=== PATIENT | male | born 1945 | race Caucasian/White ===

== ENCOUNTER 2016-09-06 11:45 | Inpatient (IN) | payer OTHER ==
[~2016-09-06] VITALS: Ht 180.3 cm; Wt 117.9 kg
[2016-09-06 16:00] VITALS: BP 141/67
[2016-09-06 18:43] LABS: BASOPHILS % (AUTO) 1.2 % (0.0-2.0); EOSINOPHILS % (AUTO) 2.2 % (0.0-3.0); LYMPHOCYTES % (AUTO) 21.2 % (20.0-45.0); MEAN CORPUSCULAR HEMOGLOBIN 31.1 PG (27.0-31.0); MEAN CORPUSCULAR HGB CONC 33.3 G/DL (32.0-36.0); MEAN CORPUSCULAR VOLUME 93 FL (80-99); MEAN PLATELET VOLUME 8.1 FL (6.5-10.1); NEUTROPHILS % (AUTO) 66.4 % (45.0-75.0); PLATELET COUNT 139 K/UL (150-450); RED BLOOD COUNT 5.47 M/UL (4.70-6.10); RED CELL DISTRIBUTION WIDTH 12.2 % (11.6-14.8); WHITE BLOOD COUNT 9.2 K/UL (4.8-10.8)
[2016-09-06 19:01] LABS: CALCIUM 9.5 mg/dL (8.6-10.2); CREATININE 1.5 mg/dL (0.7-1.2); GLOMERULAR FILTRATION RATE 46.4 mL/min (>60); POTASSIUM 4.3 mEQ/L (3.4-4.9)
--- NOTE | 2016-09-06 19:10 | History and Physical ---
History of Present Illness General Date patient seen: Sep 06, 2016 Time patient seen: 19:10 Reason for Hospitalization: Encephalopathy Present Illness HPI 70y/o male with pmh of DM2, HTN, CKD, BPH, depression, PVD who presents from PCP 's office with concern for acute encephalopathy and psychosis. P noted to be upset and screaming at staff at PCP's office. He had grandoise behavior, stating he is a civil right's leader. He has conspiracy theories abt government. He states he's planning on suing [facility] justices. He states people come to him for him and he is an important person. He dwells on multiple past doctor experiences which he is upset abt. He appears to be paranoid. Pt states you should "google who I am so you can truly understand who you are dealing with here". Pt was instructed to go to [facility] for direct admission which he did comply with. Pt also states he does not trust any of his family members including his son. He is currently living with a friend/roommate. Smokes marijuana. Denies other drugs or alcohol use. Denies recent falls or trauma. States he has been in inpatient psych facilities. States he is not currently taking any psych meds. Pt also states has h/o "leaky valve" and "kidney lesions", "gallstones". Allergies: Coded Allergies: NO KNOWN ALLERGIES (Verified Allergy, Unknown, 09/06/16) Medication History Scheduled Amlodipine Besylate* (Amlodipine Besylate*), 10 MG ORAL DAILY, (Reported) Atenolol* (Tenormin*), 25 MG ORAL DAILY, (Reported) Atenolol* (Tenormin*), 25 MG ORAL DAILY, (Reported) Glimepiride* (Glimepiride*), 2 MG ORAL BEFORE BREAKFAST, (Reported) Lisinopril/Hydrochlorothiazide 10-12.5 Mg Tab (Lisinopril-Hctz 10-12.5 Mg Tab), 1 TAB ORAL DAILY, (Reported) Metformin Hcl* (Metformin Hcl*), 850 MG ORAL DAILY, (Reported) Miscellaneous Medications Gemfibrozil (Gemfibrozil*), 600 MG ORAL, (Reported) Oxybutynin Chloride (Oxybutynin Chloride), 10 MG ORAL, (Reported) Patient History History Provided By: Patient, Medical Record, PMD Healthcare decision maker N Resuscitation status Advanced Directive on File Family History Family History: Patient reports no known family medical history. Social History Social History: (1) Lives with roommates Review of Systems ROS Narrative General: alert, cooperative, no distress, appears stated age Head: normocephalic, without obvious abnormality, atraumatic Eyes: conjunctivae/corneas clear. PERRL, EOM's intact Throat: lips, mucosa, and tongue normal. MMM Neck: supple, symmetrical, trachea midline, and no JVD Lungs: clear to auscultation bilaterally Heart: regular rate and rhythm, S1, S2 normal, no murmur, click, rub or gallop Abdomen: soft, non-tender, non-distended, bowel sounds normal; no masses or organomegaly Extremities: extremities normal, atraumatic, no cyanosis or edema Pulses: 2+ and symmetric Skin: skin color, texture, turgor normal; no rashes or lesions Neurologic: grossly normal, no focal deficits Physical Exam Physical Exam Narrative General: alert, cooperative, no distress, appears stated age Head: normocephalic, without obvious abnormality, atraumatic Eyes: conjunctivae/corneas clear. PERRL, EOM's intact Throat: lips, mucosa, and tongue normal. MMM Neck: supple, symmetrical, trachea midline, and no JVD Lungs: clear to auscultation bilaterally Heart: regular rate and rhythm, S1, S2 normal, no murmur, click, rub or gallop Abdomen: soft, non-tender, non-distended, bowel sounds normal; no masses or organomegaly Extremities: extremities normal, atraumatic, no cyanosis or edema Pulses: 2+ and symmetric Skin: skin color, texture, turgor normal; no rashes or lesions Neurologic: grossly normal, no focal deficits Last 24 Hour Vital Signs Date Time Temp Pulse Resp B/P Pulse Ox O2 Delivery O2 Flow Rate FiO2 09/06/16 16:00 97.5 52 19 141/67 96 Room Air Laboratory Tests Test 09/06/16 18:35 White Blood Count 9.2 K/UL (4.8-10.8) Red Blood Count 5.47 M/UL (4.70-6.10) Hemoglobin 17.0 G/DL (14.2-18.0) Hematocrit 51.0 % (42.0-52.0) Mean Corpuscular Volume 93 FL (80-99) Mean Corpuscular Hemoglobin 31.1 PG (27.0-31.0) H Mean Corpuscular Hemoglobin Concent 33.3 G/DL (32.0-36.0) Red Cell Distribution Width 12.2 % (11.6-14.8) Platelet Count 139 K/UL (150-450) L Mean Platelet Volume 8.1 FL (6.5-10.1) Neutrophils (%) (Auto) 66.4 % (45.0-75.0) Lymphocytes (%) (Auto) 21.2 % (20.0-45.0) Monocytes (%) (Auto) 9.0 % (1.0-10.0) Eosinophils (%) (Auto) 2.2 % (0.0-3.0) Basophils (%) (Auto) 1.2 % (0.0-2.0) Sodium Level 140 mEQ/L (135-145) Potassium Level 4.3 mEQ/L (3.4-4.9) Chloride Level 100 mEQ/L (98-107) Carbon Dioxide Level 22 mEQ/L (20-30) Anion Gap 18 (5-15) H Blood Urea Nitrogen 35 mg/dL (7-23) H Creatinine 1.5 mg/dL (0.7-1.2) H Estimat Glomerular Filtration Rate 46.4 mL/min (>60) Glucose Level 94 mg/dL (74-106) Calcium Level 9.5 mg/dL (8.6-10.2) Folate Pending Thyroid Stimulating Hormone (TSH) Pending Assessment/Plan Problem List: (1) Acute encephalopathy ICD Codes: G93.40 - Encephalopathy, unspecified SNOMED: 1466868 (2) Acute psychosis ICD Codes: F23 - Brief psychotic disorder SNOMED: 99821037 (3) DM2 (diabetes mellitus, type 2) ICD Codes: E11.9 - Type 2 diabetes mellitus without complications SNOMED: 08411691 (4) HTN (hypertension) ICD Codes: I10 - Essential (primary) hypertension SNOMED: 20184197 Status: stable Assessment/Plan Pt's AMS appears related to acute psychosis. He has grandiose behavior, paranoia , delusions. No known neurological history. His psychiatric history is unknown at this time. Will rule out medical reason with MRI brain and labs. Check MRI brain Check B12, folate, TSH, vit D Psych consulted Check TTE given pt notes "leaky valve" Pt also states has "kidney lesions" so will check complete u/s abd D/w PMD who saw pt in office who would like pt medically stabilized and transferred to inpatient psych facility Maya Gonzalez M.D. Sep 06, 2016 19:10
[2016-09-06 19:11] LABS: THYROID STIMULATING HORMONE 2.42 uIU/mL (0.300-4.500)
[2016-09-06 20:00] VITALS: BP 126/72
[2016-09-06] MEDS ORDERED: ATENOLOL25 MG ORAL ×2 (20:54→21:02)
[2016-09-06] MEDS ORDERED: GEMFIBROZIL600 MG ORAL (21:02)
[2016-09-06] MEDS ORDERED: OXYBUTYNIN CHLOR5 M1 ORAL (21:02)
[2016-09-06] MEDS ORDERED: LISINOPRIL-HCT1 EACH ORAL (21:02)
[2016-09-06] MEDS ORDERED: METFORMIN HCL850 M1 ORAL (21:02)
[2016-09-06] MEDS ORDERED: AMLODIPINE BESY10 MG ORAL (21:02)
[2016-09-06] MEDS ORDERED: GLIMEPIRIDE1 MG ORAL (21:02)
[2016-09-06] MEDS: NovoLOG Insulin Flexpen SUBQ SCH (21:30)
[2016-09-07 04:00] VITALS: BP 123/68
[2016-09-07] MEDS: NovoLOG Insulin Flexpen SUBQ SCH ×3 (06:13→16:30)
[2016-09-07 06:38] LABS: BASOPHILS % (AUTO) 1.6 % (0.0-2.0); EOSINOPHILS % (AUTO) 3.3 % (0.0-3.0); LYMPHOCYTES % (AUTO) 23.3 % (20.0-45.0); MEAN CORPUSCULAR HEMOGLOBIN 30.8 PG (27.0-31.0); MEAN CORPUSCULAR HGB CONC 33.2 G/DL (32.0-36.0); MEAN CORPUSCULAR VOLUME 93 FL (80-99); MEAN PLATELET VOLUME 8.3 FL (6.5-10.1); MONOCYTES % (AUTO) 10.6 % (1.0-10.0); NEUTROPHILS % (AUTO) 61.2 % (45.0-75.0); PLATELET COUNT 118 K/UL (150-450); RED BLOOD COUNT 5.17 M/UL (4.70-6.10); RED CELL DISTRIBUTION WIDTH 12.1 % (11.6-14.8)
[2016-09-07 06:52] LABS: INR 1.1 (0.9-1.1); PROTHROMBIN TIME 11.4 SEC (9.30-11.50)
[2016-09-07 07:01] LABS: HEMOGLOBIN A1C 6.5 % (< 6.0)
[2016-09-07 07:02] LABS: TROPONIN I < 0.30 ng/mL (<=0.30)
[2016-09-07 07:40] LABS: ALANINE AMINOTRANSFERASE 26 U/L (3-41); ALANINE AMINOTRANSFERASE 27 U/L (3-41); ALBUMIN/GLOBULIN RATIO 1.3 (1.0-2.7); ANION GAP 18 (5-15); ASPARTATE AMINO TRANSFERASE 19 U/L (5-40); BILIRUBIN,DIRECT 0.2 mg/dL (0.1-0.3); CALCIUM 9.4 mg/dL (8.6-10.2); CARBON DIOXIDE 23 mEQ/L (20-30); CHLORIDE 101 mEQ/L (98-107); CHOLESTEROL 162 mg/dL (< 200); CHOLESTEROL/HDL RATIO 4.6 (3.3-4.4); CREATININE 1.4 mg/dL (0.7-1.2); GLOMERULAR FILTRATION RATE 50.2 mL/min (>60); LDL CHOLESTEROL (CALC.) 100 mg/dL (60-99); POTASSIUM 4.1 mEQ/L (3.4-4.9); SODIUM 142 mEQ/L (135-145); TOTAL PROTEIN 6.3 g/dL (6.6-8.7); TOTAL PROTEIN 6.4 g/dL (6.6-8.7)
[2016-09-07 08:00] VITALS: BP 122/68
[2016-09-07] MEDS ORDERED: Atenolol 25mg tab ORAL SCH (09:00)
[2016-09-07] MEDS ORDERED: Oxybutynin 5mg tab ORAL SCH (09:00)
--- NOTE | 2016-09-07 10:51 | Diagnostic Imaging Report ---
Indication: Dyspnea Comparison: None A single view chest radiograph was obtained. Findings: Cardiomediastinal appearance is within normal limits for age. Pulmonary vascularity is appropriate. The diaphragmatic contour is smooth and costophrenic angles are sharp. No pleural effusions are identified. The bones are unremarkable. Impression: No acute findings
--- NOTE | 2016-09-07 11:13 | Diagnostic Imaging Report ---
Indication: Altered mental status Technique: The head was imaged in a 1.5 Rhianna magnet. Sequences obtained include sagittal and axial T1 FLAIR, axial T2 fast spin echo with fat saturation, axial T2 FLAIR, diffusion and ADC map. Comparison: None Findings: There is mild prominence of the sulci, ventricles, and basal cisterns consistent with atrophy. Mild, nonspecific T2 hyperintensity noted within white matter. This may be due to chronic small vessel disease. There is no restricted diffusion. Hdez-white differentiation is normal. There is no mass effect, midline shift, edema, or hemorrhage. There are no abnormal extra-axial or intra-axial fluid collections. The corpus callosum and sella are unremarkable. The brainstem and cerebellum are unremarkable. Bone marrow signal within the visualized osseous structures appears age appropriate and unremarkable otherwise. Impression: No acute intracranial findings. Mild atrophy and evidence of chronic small vessel disease involving white matter tracts.
--- NOTE | 2016-09-07 12:54 | Diagnostic Imaging Report ---
Indication:Abdominal pain Technique: Grayscale and duplex Doppler imaging of the abdomen performed. Comparison: None Findings: Liver is echogenic consistent with fatty infiltration. Gallstones are present. The spleen is also enlarged measuring approximately 13-14 cm The demonstrated part of the pancreas, aorta and IVC, both kidneys appear unremarkable. There is no biliary ductal dilatation identified. Doppler evaluation of the main portal vein shows patency. There is no ascites. No hydronephrosis seen. Impression: Cholelithiasis. Fatty liver Splenomegaly
--- NOTE | 2016-09-07 14:34 | Discharge Summary ---
Discharge Summary Hospital Course Date of Admission Sep 06, 2016 at 13:58 Date of Discharge 09/07/16 Admitting Diagnosis Acute encephalopathy Reason for Hospitalization: Acute encephalopathy HPI 70y/o male with pmh of DM2, HTN, CKD, BPH, depression, PVD who presents from PCP 's office with concern for acute encephalopathy and psychosis. P noted to be upset and screaming at staff at PCP's office. He had grandoise behavior, stating he is a civil right's leader. He has conspiracy theories abt government. He states he's planning on suing [facility] [employer] justices. He states people come to him for him and he is an important person. He dwells on multiple past doctor experiences which he is upset abt. He appears to be paranoid. Pt states you should "google who I am so you can truly understand who you are dealing with here". Pt was instructed to go to [facility] for direct admission which he did comply with. Pt also states he does not trust any of his family members including his son. He is currently living with a friend/roommate. Smokes marijuana. Denies other drugs or alcohol use. Denies recent falls or trauma. States he has been in inpatient psych facilities. States he is not currently taking any psych meds. Pt also states has h/o "leaky valve" and "kidney lesions", "gallstones". Consultations Psychiatry Hospital Course Pt was admitted given concern for acute encephalopathy. He underwent medical workup to determine if there was a medical cause of his symptoms. He had MRI brain which showed no acute abnormality. His preliminary laboratory workup was also unremarkable. Pt continued to have outbursts while hospitalized. He continued to display delusions and paranoia. There was concern if he is able to care for himself. Psychiatry was consulted given acute psychosis. Before psychiatry could see pt, pt's insurance requested transfer to [facility] for further workup. Therefore, pt was transferred there. Spoke extensively to doctor at [facility] regarding pt's symptoms and the workup we completed. Pt was subsequently transferred to [facility] for further evaluation and management. Discharge Medications Continued Medications: Amlodipine Besylate* (Amlodipine Besylate*) 10 Mg Tablet 10 MG ORAL DAILY, TAB Atenolol* (Tenormin*) 25 Mg Tablet 25 MG ORAL DAILY, TAB Atenolol* (Tenormin*) 25 Mg Tablet 25 MG ORAL DAILY, TAB Gemfibrozil (Gemfibrozil*) 600 Mg Tablet 600 MG ORAL, TAB 0 Refills Glimepiride* (Glimepiride*) 1 Mg Tablet 2 MG ORAL BEFORE BREAKFAST, TAB Lisinopril/Hydrochlorothiazide 10-12.5 Mg Tab (Lisinopril-Hctz 10-12.5 Mg Tab) 1 Each Tablet 1 TAB ORAL DAILY, TAB Metformin Hcl* (Metformin Hcl*) 850 Mg Tablet 850 MG ORAL DAILY, TAB Oxybutynin Chloride (Oxybutynin Chloride) 5 Mg Tablet 10 MG ORAL, #30 TAB 0 Refills Discharge Condition Upon Discharge: unchanged Discharge Disposition Patient was discharged to [facility] Discharge Diagnoses: (1) Acute encephalopathy (2) Acute psychosis (3) DM2 (diabetes mellitus, type 2) (4) HTN (hypertension) Maya Gonzalez M.D. Sep 07, 2016 14:34
[2016-09-07 16:31] VITALS: BP 154/80
--- NOTE | 2016-09-11 11:36 | Cardiology Report ---
APPROVED REPORT EXAM: Two-dimensional and M-mode echocardiogram with Doppler and color Doppler. INDICATION Shortness of Breath M-Mode DIMENSIONS IVSd1.9 (0.7-1.1cm)Left Atrium (MM)5.8 (1.6-4.0cm) LVDd4.8 (3.5-5.6cm)Aortic Root3.7 (2.0-3.7cm) PWd1.4 (0.7-1.1cm)Aortic Cusp Exc.2.3 (1.5-2.0cm) LVDs2.8 (2.5-4.0cm) PWs2.0 cm Technically difficult study due to poor acoustic windows and patient body habitus. Study quality precludes accurate assessment of regional wall motion. Normal left ventricular chamber size, systolic function and wall motion. Left ventricular ejection fraction estimated to be 55 %. Mild left ventricular hypertrophy. Anterior Echo-free space, may be due to pericardial fat or effusion. Mild left atrial enlargement. Right cardiac chamber sizes are within normal limits. Mild focal aortic valve sclerosis with adequate cusp excursion. Mildly thickened mitral valve leaflets with normal excursion. Mild mitral annulus and aortic root calcification. Pulmonic valve not well visualized. Normal tricuspid valve structure. IVC dilated at 2.4 cm with physiologic collapse. A color flow and spectral Doppler study was performed and revealed: No aortic regurgitation. Trace mitral regurgitation. Mitral diastolic velocities suggest reduced left ventricular relaxation (Grade I). Trace tricuspid regurgitation. Tricuspid systolic velocities suggests peak right ventricular systolic pressure of 23 mmHg. Trace pulmonic regurgitation present.
== END 2016-09-07 16:58 | disposition short-term general hospital (02) | DRG 71 ==
LOC: 4W 13:58
DX: G93.40 Encephalopathy, unspecified (principal); F23 Brief psychotic disorder; E11.22 Type 2 diabetes mellitus with diabetic chronic kidney disease; E11.51 Type 2 diabetes mellitus with diabetic peripheral angiopathy without gangrene; I12.9 Hypertensive chronic kidney disease with stage 1 through stage 4 chronic kidney disease, or unspecified chronic kidney disease; N18.9 Chronic kidney disease, unspecified; N40.0 Benign prostatic hyperplasia without lower urinary tract symptoms
CPT/HCPCS: 36415; 70551; 71010; 76700; 80048; 80053; 80061; 80076; 82607; 82746; 82962; 83036; 83880; 84443; 84484; 85025; 85610; 85730; 86592; 86703; 93306; J1815